=== PATIENT | male | born 1995 | race Caucasian/White ===

== ENCOUNTER 2017-03-23 01:13 | Emergency (ER) | payer SELFPAY ==
[2017-03-23 01:48] VITALS: BP 134/65; PULSE 66; RESP 17; TEMP 97.9; O2SAT 98
== END 2017-03-23 03:01 | disposition left against medical advice (07) ==
LOC: H.ER 01:13
DX: Z02.89 Encounter for other administrative examinations (principal)

== ENCOUNTER 2017-06-05 16:49 | Observation (INO) | payer OTHER ==
[2017-06-05 16:50] VITALS: BMI 24.0
[2017-06-05] MEDS ORDERED: Sodium Chloride 0.9% 1,000 ML IV STA (17:16)
[2017-06-05] MEDS ORDERED: Naloxone 0.4 mg/ml Inj (Adult) IVP ONE (17:18)
--- NOTE | 2017-06-05 17:20 | ED PDOC ---
HPI: Psych/Substance Abuse Time Seen by Provider: 06/05/17 17:10 Chief Complaint (Nursing): Substance Abuse Chief Complaint (Provider): Possile substance abuse History Per: Other (girlfriend) History/Exam Limitations: other (patient not providing history) Onset/Duration Of Symptoms: Unknown Additional Complaint(s): The patient is a 21yo male, brought to the ED by his girlfriend for evaluation after ingestion of unknown quantities of Benadryl 25mg. Unclear as to whether the incident took place yesterday or today. Ingestion was unwitnessed and patient is not providing history. Per patient's girlfriend, the patient has no past medical history. No other complaints. Past Medical History Reviewed: Historical Data, Nursing Documentation, Vital Signs Vital Signs: Last Vital Signs Temp 96.5 F L 06/05/17 17:00 Pulse 58 L 06/05/17 17:00 Resp 16 06/05/17 17:00 BP 130/79 06/05/17 17:00 Pulse Ox 100 06/05/17 17:00 - Medical History PMH: No Chronic Diseases Denies: Chronic Kidney Disease - Family History Family History: States: Unknown Family Hx - Home Medications Home Medications: Ambulatory Orders Medication Instructions Recorded No Known Home Med 07/15/16 No Known Home Med 04/09/17 - Allergies Allergies/Adverse Reactions: Allergies Allergy/AdvReac Type Severity Reaction Status Date / Time cinnamon Allergy RASH Verified 06/05/17 16:59 Review of Systems ROS Statement: Except As Marked, All Systems Reviewed And Found Negative Psych: Positive for: Other (ingestion of unknown quantities of Benadryl 25 mg) Physical Exam - Reviewed Nursing Documentation Reviewed: Yes Vital Signs Reviewed: Yes - Physical Exam Appears: Positive for: No Acute Distress Head Exam: Positive for: ATRAUMATIC, NORMAL INSPECTION, NORMOCEPHALIC Skin: Positive for: Normal Color, Warm, DRY Eye Exam: Positive for: EOMI, Normal appearance, PERRL Neck: Positive for: Normal, Painless ROM Cardiovascular/Chest: Positive for: Regular Rate, Rhythm Respiratory: Positive for: Normal Breath Sounds. Negative for: Respiratory Distress Gastrointestinal/Abdominal: Positive for: Normal Exam, Soft. Negative for: Tenderness Back: Positive for: Normal Inspection Extremity: Positive for: Normal ROM, Other (no track solis noted). Negative for : Deformity Neurologic/Psych: Positive for: Other (patient sleepy but arousable; moving all extremities; no focal deficits). Negative for: Motor/Sensory Deficits - Laboratory Results Result Diagrams: 06/05/17 17:24 06/05/17 17:24 - ECG O2 Sat by Pulse Oximetry: 100 (RA) Pulse Ox Interpretation: Normal - Radiology X-Ray: Viewed By Me, Read By Radiologist X-Ray Interpretation: No Acute Disease Medical Decision Making Medical Decision Making: Time: 1717 Impression: Possible substance abuse Plan: -- Labs -- CT Head -- Narcan 2 mg IVP -- IV Fluids Reassess Time: 1915 No acute intracranial pathology identified. Time: 2106 Patient to be placed in restraints due to increased agitation. Patient to be placed in ED observation. Scribe Attestation: Documented by Ramona Ford acting as a scribe for Dillan Momin MD. Provider Attestation: All medical record entries made by the Scribe were at my direction and personally dictated by me. I have reviewed the chart and agree that the record accurately reflects my personal performance of the history, physical exam, medical decision making, and the department course for this patient. I have also personally directed, reviewed, and agree with the discharge instructions and disposition. Medically stable for psychiatric evaluation ED OBSERVATION Date of observation admission: 06/05/17 Time of observation admission: 21:08 Disposition - Clinical Impression Clinical Impression: Suicidal ideation - Patient ED Disposition Is Patient to be Admitted: Transfer of Care - Disposition Disposition: Transfer of Care Disposition Time: 00:09 Condition: FAIR Patient Signed Over To: Sam East
[2017-06-05 17:40] LABS: BASO # 0.1 K/uL (0.0-0.2); BASO % 0.8 % (0.0-2.0); EOS # 0.1 K/uL (0.0-0.7); EOS % 1.4 % (0.0-4.0); HEMOGLOBIN 15.8 g/dL (12.0-18.0); LYMPH # 2.3 K/uL (1.0-4.3); LYMPH % 23.8 % (20.0-40.0); MEAN CELL VOLUME 87.3 fl (80.0-94.0); MEAN CORPUSCULAR HEMOGLOBIN 29.5 pg (27.0-31.0); MEAN CORPUSCULAR HGB CONC 33.8 g/dL (33.0-37.0); MEAN PLATELET VOLUME 9.9 fl (7.2-11.7); MONO # 0.5 K/uL (0.0-0.8); MONO % 4.9 % (0.0-10.0); NEUT # 6.8 K/uL (1.8-7.0); NEUT % 69.1 % (50.0-75.0); NRBC % 0.1 % (0.0-0.0); RBC 5.34 Mil/uL (4.40-5.90); RED CELL DISTRIBUTION WIDTH 13.5 % (11.5-14.5); WHITE BLOOD COUNT 9.8 K/uL (4.8-10.8)
[2017-06-05 17:47] LABS: ALB/GLOB RATIO 1.5 (1.0-2.1); ALBUMIN 4.9 g/dL (3.5-5.0); ALT/SGPT 35 U/L (21-72); AST/SGOT 21 U/L (17-59); BLOOD UREA NITROGEN 13 mg/dl (9-20); GFR AFRICAN-AMERICAN > 60; GFR NON-AFRICAN AMERICAN > 60
[2017-06-05 17:53] LABS: SALICYLATE < 1.0 mg/dl
[2017-06-05 18:00] LABS: ACETAMINOPHEN < 10.0 ug/ml (10.0-30.0)
[2017-06-05 18:18] LABS: INR 1.2 (0.9-1.2); PROTHROMBIN TIME 13.8 Seconds (9.8-13.1)
--- NOTE | 2017-06-05 18:37 | RAD ---
HISTORY: cough COMPARISON: Chest x-ray performed 04/21/15 TECHNIQUE: Chest, one view. FINDINGS: LUNGS: No focal consolidation. Please note that chest x-ray has limited sensitivity for the detection of pulmonary masses. PLEURA: No significant pleural effusion identified. No definite pneumothorax . CARDIOVASCULAR: The cardiomediastinal silhouette appears within normal limits of size. OSSEOUS STRUCTURES: No acute osseous abnormality identified. VISUALIZED UPPER ABDOMEN: Unremarkable. OTHER FINDINGS: None. IMPRESSION: No focal consolidation, significant pleural effusion, or definite pneumothorax identified.
--- NOTE | 2017-06-05 18:57 | CT ---
PROCEDURE: CT HEAD WITHOUT CONTRAST. HISTORY: r/o bleed COMPARISON: None available. TECHNIQUE: Axial computed tomography images were obtained through the head/brain without intravenous contrast. Radiation dose: Total exam DLP = 825.15 mGy-cm. This CT exam was performed using one or more of the following dose reduction techniques: Automated exposure control, adjustment of the mA and/or kV according to patient size, and/or use of iterative reconstruction technique. FINDINGS: HEMORRHAGE: No intracranial hemorrhage. BRAIN: No mass effect or edema. The [place]-white matter differentiation appears intact. Please note that MRI with diffusion imaging is more sensitive in the detection of acute ischemic event. VENTRICLES: No hydrocephalus. CALVARIUM: Unremarkable. PARANASAL SINUSES: Unremarkable as visualized. No significant inflammatory changes. MASTOID AIR CELLS: Unremarkable as visualized. No inflammatory changes. OTHER FINDINGS: None. IMPRESSION: No acute intracranial pathology identified.
[2017-06-05] MEDS ORDERED: Naloxone 0.4 mg/ml Inj (Adult) ONE (19:12)
[2017-06-05 22:21] LABS: BARBITURATES, UR NEGATIVE (NEGATIVE); BENZODIAZEPINES, UR NEGATIVE (NEGATIVE); OPIATES, UR NEGATIVE (NEGATIVE); PHENCYCLIDINE, UR NEGATIVE (NEGATIVE)
[2017-06-05 22:32] VITALS: RESP 16; TEMP 98.1
--- NOTE | 2017-06-06 00:41 | ED PDOC ---
- Laboratory Results Result Diagrams: 06/05/17 17:24 06/05/17 17:24 - ECG O2 Sat by Pulse Oximetry: 100 (RA) Medical Decision Making Medical Decision Makin Receiving sign out: Patient signed out to me by Dr. Momin pending [facility] evaluation. * Patient in ED OBS All further documentation will take place in ED OBS note Scribe Attestation: Documented by Shantel Villalba acting as a scribe for Sam East MD. Provider Attestation: All medical record entries made by the Scribe were at my direction and personally dictated by me. I have reviewed the chart and agree that the record accurately reflects my personal performance of the history, physical exam, medical decision making, and the department course for this patient. I have also personally directed, reviewed, and agree with the discharge instructions and disposition. Disposition - Clinical Impression Clinical Impression: Suicidal ideation, Substance abuse - POA Present On Arrival: None - Disposition Disposition: Routine/Home Disposition Time: 06:30 Condition: FAIR ED OBSERVATION Date of observation admission: 06/05/17 Time of observation admission: 21:10 - Observation admission statement Patient is being placed in observation because:: [facility] evaluation - Goals of Observation Goals of observation are:: Diagnosis and final disposition - Progress Note Progress Note: 06/06/17 00:00 Patient resting comfortably. Vitals stable. 06/06/17 01:35 Patient resting comfortably. Vitals stable. 06/06/17 03:00 Patient resting comfortably. Vitals stable. 06/06/17 04:30 Patient resting comfortably. Vitals stable. 06/06/17 06:00 Patient resting comfortably. Vitals stable. 06/06/17 06:30 PT. cleared by psych under Dr. Reilly. Will d/c home.
[2017-06-06 01:12] VITALS: O2SAT 100
[2017-06-06 04:29] VITALS: BP 126/71; PULSE 75
--- NOTE | 2017-06-06 10:10 | CARD ---
APPROVED REPORT EKG Measurement Heart [id number] <Conclusion> Sinus bradycardia with sinus arrhythmia Otherwise normal ECG
== END 2017-06-06 06:35 | disposition home or self-care (01) ==
LOC: H.ER 16:49 → H.EROBSV 21:10
PROVIDERS: ADMIT Emergency Medicine; ATTEND Emergency Medicine
DX: T45.0X2A Poisoning by antiallergic and antiemetic drugs, intentional self-harm, initial encounter (principal); R45.851 Suicidal ideations
CPT/HCPCS: 70450; 71010; 80053; 82948; 85025; 85610; 93005; 96372; 96374; G0378; G0480; J1630; J2060; J7040